=== PATIENT | female | born 1985 | race African-American/Black ===

== ENCOUNTER 2025-06-12 16:31 | Emergency (ER) | payer OTHER ==
[2025-06-12] MEDS ORDERED: Ondansetron PF 4 MG/2 ML Vial ONE (16:48)
[2025-06-12 16:57] LABS: Glucose, Urine (Dipstick) Negative (Negative); Leukocyte Negative (Negative); Protein, Urine (Dipstick) 30 mg/dL (Neg-Trace); Specific Gravity, Urine Greater/Equal 1.030 (1.005-1.030)
[2025-06-12 16:58] LABS: Hematocrit 33.8 % (36.0-47.0); Hemoglobin 11.0 g/dL (12.0-16.0); Mean Corpuscular Hemoglobin 23.9 pg (27.0-31.0); Mean Corpuscular Volume 73.6 fl (78.0-98.0); Platelet Count 255 10x3/uL (130-400); Red Blood Cell (RBC) Count 4.59 mill/uL (4.20-5.40); White Blood Cell (WBC) Count 4.3 10x3/uL (4.8-10.8)
[2025-06-12 17:06] LABS: ALT (SGPT) 20 U/L (Less than 34); AST (SGOT) 33 U/L (11-34); Albumin 3.8 g/dL (3.1-4.5); Alkaline Phosphatase 74 U/L (40-110); Anion Gap 16 mmol/L (10-20); BUN (Urea Nitrogen) 7 mg/dL (7.0-18.7); Bilirubin, Total 0.2 mg/dL (0.3-1.2); Calc. Creatinine Clearance 0 mL/min (70-130); Calcium 9.0 mg/dL (7.8-10.44); Carbon Dioxide 21 mmol/L (22-29); Chloride 109 mmol/L (98-107); Globulin 4.0 g/dL (2.4-3.5); Glucose 94 mg/dL (70-105); Lipase 9 U/L (8-78); Magnesium 1.9 mg/dL (1.6-2.6); Potassium 3.2 mmol/L (3.5-5.1); Sodium 143 mmol/L (136-145)
[2025-06-12 17:06] LABS: Bacteria/HPF 3+ HPF (None Seen); CAUTI Indications for Culture Dysuria,urgency,freq; Yeast-Budding Rare HPF (None Seen)
[2025-06-12 17:07] LABS: RBC/HPF 0-3 HPF (0-3); WBC/HPF 0-3 HPF (0-3)
[2025-06-12 17:08] LABS: Urine Culture Reflex No No
[2025-06-12] MEDS ORDERED: cefTRIAXone (ROCEPHIN) 500 MG VIAL ONE (17:12)
[2025-06-12] MEDS ORDERED: Lidocaine 1% PF 5 ML VIAL ONE (17:12)
[2025-06-12 17:22] LABS: MDiff Complete? YES; Microcytosis SLIGHT = 6-15 cells (100X) (0-5/hpf); Platelet Adequacy Comment Appears Adequate
[2025-06-12] MEDS ORDERED: Fluconazole 100 MG TAB ONE (17:55)
[2025-06-15 02:42] LABS: Chlam.trachomatis by PCR,Urine Not Detected (NotDetected); GC N.gonorrhoeae PCR,UrineVOID Not Detected (NotDetected)
== END 2025-06-12 18:04 | disposition home or self-care (01) ==
LOC: BURERS 16:31
DX: R11.2 Nausea with vomiting, unspecified (principal); E87.6 Hypokalemia; A64 Unspecified sexually transmitted disease; J45.909 Unspecified asthma, uncomplicated; Z79.51 Long term (current) use of inhaled steroids
CPT/HCPCS: 80053; 81001; 83690; 83735; 85025; 87491; 87591; 87661; 96361; 96372; 96374; J0696; J2405

== ENCOUNTER 2025-10-12 23:02 | Emergency (ER) | payer OTHER ==
[2025-10-12] MEDS ORDERED: Lidocaine Viscous Sol 2% 15 ml UD Cup ONE (23:24)
[2025-10-12] MEDS ORDERED: Ketorolac Tromethamine 30 MG (1 mL) VIAL ONE (23:40)
== END 2025-10-12 23:57 | disposition home or self-care (01) ==
LOC: BURERS 23:02
DX: K02.9 Dental caries, unspecified (principal); I10 Essential (primary) hypertension; E11.9 Type 2 diabetes mellitus without complications; E66.9 Obesity, unspecified
CPT/HCPCS: 64400; 96372; J1885; J3490